=== PATIENT | female | born 1935 | race Caucasian/White ===

== ENCOUNTER 2022-05-13 16:28 | Observation (INO) ==
[2022-05-13] MEDS ORDERED: Ondansetron 4 MG/2 ML VIAL IVP PRN (21:37)
[2022-05-13] MEDS ORDERED: Naloxone 0.4 MG/ML INJ IVP PRN (21:37)
[2022-05-13] MEDS: Acetaminophen 325 MG TABLET PO PRN (22:04)
[2022-05-14 06:57] LABS: Prothrombin Time 11.5 Seconds (9.4-12.1)
[2022-05-14 07:00] LABS: Activated Partial Thrombo Time 31.2 Seconds (26.0-36.0)
[2022-05-14 07:03] LABS: Hematocrit 36.4 % (35.3-44.9); Hemoglobin 11.8 g/dL (11.5-15.4); Mean Corpuscular HGB Conc 32.4 g/dL (31.6-35.5); Mean Corpuscular Hemoglobin 29.9 pg (28.0-33.3); Mean Corpuscular Volume 92.4 fL (83.0-100.0); Mean Platelet Volume 11.2 fL (9.4-12.4); Platelet Count 123 K/mcL (140-400); Red Blood Count 3.94 M/mcL (3.82-4.97); Red Cell Distribution Width 13.2 % (11.5-14.5); White Blood Count 4.2 K/mcL (4.3-11.1)
[2022-05-14 07:29] LABS: BUN/Creatinine Ratio 30 (6-26); Blood Urea Nitrogen 16 mg/dL (8-23); Calcium 9.1 mg/dL (8.6-10.3); Carbon Dioxide 24 mEq/L (23-29); Chloride 109 mEq/L (98-107); Cholesterol 94 mg/dL (< 200); Glucose 85 mg/dL (70-105); HDL Cholesterol 47 mg/dL (40-59); LDL Cholesterol,Calculated 34 mg/dL (< 100); Magnesium 1.8 mg/dL (1.6-2.6); Osmolality,Calculated 292 (280-300); Potassium 3.5 mEq/L (3.5-5.1); Sodium 141 mEq/L (136-145); Triglycerides 65 mg/dL (< 150); Troponin I < 0.03 ng/mL (< 0.04); eGFR For African Americans > 60 (> 60); eGFR For Non-African Americans > 60 (> 60)
[2022-05-14 07:32] LABS: Estimated Average Glucose 105 mg/dl; Hemoglobin A1C 5.3 %
[2022-05-14] MEDS: Acetaminophen 325 MG TABLET PO PRN (07:59)
[2022-05-14] MEDS: Multivit/Ca/Min/Fe/FA 1 TAB TABLET PO SCH (07:59)
[2022-05-14] MEDS: Aspirin Enteric Coated 81 MG Tablet PO SCH (07:59)
[2022-05-15 06:52] LABS: Basophils % 0.4 %; Eosinophils # 0.2 K/mcL (0.0-0.6); Eosinophils % 4.4 %; Hematocrit 37.1 % (35.3-44.9); Immature Granulocytes % 0.2 % (0-4); Immature Platelets 3.9 % (1.1-6.1); Lymphocytes # 1.9 K/mcL (0.6-4.6); Lymphocytes % 37.3 %; Mean Corpuscular HGB Conc 32.3 g/dL (31.6-35.5); Mean Corpuscular Hemoglobin 29.9 pg (28.0-33.3); Mean Corpuscular Volume 92.3 fL (83.0-100.0); Monocytes # 0.4 K/mcL (0.0-1.3); Monocytes % 8.2 %; Neutrophils # 2.5 K/mcL (1.6-8.9); Platelet Count 142 K/mcL (140-400); Red Blood Count 4.02 M/mcL (3.82-4.97); Segmented Neutrophils % 49.5 %
[2022-05-15 07:28] LABS: BUN/Creatinine Ratio 31 (6-26); Blood Urea Nitrogen 17 mg/dL (8-23); Calcium 9.1 mg/dL (8.6-10.3); Carbon Dioxide 26 mEq/L (23-29); Chloride 108 mEq/L (98-107); Glucose 88 mg/dL (70-105); Magnesium 1.8 mg/dL (1.6-2.6); Osmolality,Calculated 289 (280-300); Potassium 3.9 mEq/L (3.5-5.1); Sodium 139 mEq/L (136-145); eGFR For African Americans > 60 (> 60); eGFR For Non-African Americans > 60 (> 60)
[2022-05-15] MEDS: Multivit/Ca/Min/Fe/FA 1 TAB TABLET PO SCH (08:53)
[2022-05-15] MEDS: Aspirin Enteric Coated 81 MG Tablet PO SCH (08:53)
[2022-05-16] MEDS: Acetaminophen 325 MG TABLET PO PRN (09:00)
[2022-05-16] MEDS: Aspirin Enteric Coated 81 MG Tablet PO SCH (09:01)
[2022-05-16] MEDS: Multivit/Ca/Min/Fe/FA 1 TAB TABLET PO SCH (09:01)
[2022-05-17] MEDS: Acetaminophen 325 MG TABLET PO PRN (05:03)
[2022-05-17] MEDS: Aspirin Enteric Coated 81 MG Tablet PO SCH (09:28)
[2022-05-17] MEDS: Multivit/Ca/Min/Fe/FA 1 TAB TABLET PO SCH (09:28)
[2022-05-18] MEDS: Aspirin Enteric Coated 81 MG Tablet PO SCH (07:44)
[2022-05-18] MEDS: Multivit/Ca/Min/Fe/FA 1 TAB TABLET PO SCH (07:44)
[2022-05-18] MEDS: Acetaminophen 325 MG TABLET PO PRN (14:12)
[2022-05-19] MEDS: Multivit/Ca/Min/Fe/FA 1 TAB TABLET PO SCH (07:29)
[2022-05-19] MEDS: Aspirin Enteric Coated 81 MG Tablet PO SCH (07:29)
[2022-05-19] MEDS: Acetaminophen 325 MG TABLET PO PRN (16:10)
[2022-05-19 23:28] VITALS: O2SAT 96
[2022-05-20 07:27] VITALS: PULSE 67; TEMP 97.6
[2022-05-20] MEDS: Acetaminophen 325 MG TABLET PO PRN (07:39)
[2022-05-20] MEDS: Aspirin Enteric Coated 81 MG Tablet PO SCH (07:40)
[2022-05-20] MEDS: Multivit/Ca/Min/Fe/FA 1 TAB TABLET PO SCH (07:40)
[2022-05-20 07:48] VITALS: BP 107/66
== END 2022-05-20 16:05 ==
LOC: 2ANU → SUATTDRO 19:15
PROVIDERS: ADMIT Student in an Organized Health Care Education/Training Program; ATTEND Internal Medicine